=== PATIENT | female | born 1965 ===

== ENCOUNTER 2018-01-11 10:10 | Outpatient (CLI) | payer OTHER | END 2018-01-11 10:14 | disposition home or self-care (01) | LOC: SONOGRAMA 10:10 → MAMO-SONO 10:10 → SONOGRAMA 10:14 → MAMO-SONO 10:14 | DX: Z12.31 Encounter for screening mammogram for malignant neoplasm of breast (principal); N60.11 Diffuse cystic mastopathy of right breast; N60.12 Diffuse cystic mastopathy of left breast; D25.0 Submucous leiomyoma of uterus; N84.0 Polyp of corpus uteri ==